=== PATIENT | male | born 1970 | race African-American/Black ===

== ENCOUNTER 2016-09-19 10:56 | Emergency (ER) | payer OTHER ==
--- NOTE | ~2016-09-19 | US115 ---
[facility] A Service of [facility] & [facility] RADIOLOGY TEXT RESULTS PATIENT: ELLYN COTTON LOCATION: SED : 70 UNIT #: [id number] AGE: [address]: Moise Sutherland MD SEX: M ORDER DR: [id number] [place] [id number] E MR#: [id number] Acc #: [id number] NAME: ELLYN COTTON : 1970 SEX: M STUDY DATE/TIME: 09/19/2016 11:47 UNIT: SED ROOM: STUDY DESCRIPTION: US Scrotum and Contents Attending Physician: Moise Sutherland M.D. Ordering Physician: Moise Sutherland M.D. Primary Care Physician: No Primary Care Physician MEDICAL IMAGING REPORT This report is preliminary unless electronic signature is present. EXAM Scrotal ultrasound, 09/19/2016. HISTORY Pain in testicles 1 day. No prior surgery. TECHNIQUE Real-time ultrasonography of the bilateral testes performed. [place]-scale, color Doppler, Doppler pulse-wave interrogation utilized. FINDINGS Right testis measures 2.02 cm x 3.04 cm x 4.17 cm. Normal in size, contour, and echotexture. No focal mass lesion. Arterial and venous flow present. No fluid in the right hemiscrotum. The right epididymis shows a 1.26 cm x 9.1 mm x 1.16 cm epididymal head cyst. Epididymis otherwise unremarkable. The left testis measures 2.25 cm x 3.10 cm x 4.37 cm. Normal in size, contour, and echotexture. Arterial and venous flow present. No mass lesion. Left epididymal head cyst measuring 4.7 x 8.9 mm x 5.2 mm. Epididymis otherwise unremarkable. No left hemiscrotum fluid collection. IMPRESSION 1. Bilateral testes normal in size, contour, and echotexture. Arterial and venous flow noted bilaterally. No testicular mass lesions. 2. Bilateral epididymal head cysts. On right measuring up to 1.2 cm and on left measuring up to about 8.9 mm. No suspicious epididymal findings. 3. No abnormal intrascrotal fluid collections. Dictated by... [facility] A Service of [facility] & [facility] RADIOLOGY TEXT RESULTS PATIENT: ELLYN COTTON LOCATION: SED : 70 UNIT #: [id number] AGE: [address]: Moise Sutherland MD SEX: M ORDER DR: Yinka Coe M.D. THIS IS AN ELECTRONICALLY VERIFIED REPORT Yinka Coe M.D. at 09/21/2016 10:28 PM MADIHA/ching TD: 09/19/2016 15:03 JOB #: [id number] MEDICAL IMAGING REPORT Page 1 of 1
[2016-09-19] MEDS ORDERED: NO MEDICATIONS (11:01)
[2016-09-19 11:42] LABS: URINE SOURCE CLEAN CATCH
[2016-09-19 11:45] LABS: URINE APPEARANCE CLEAR; URINE BILIRUBIN NEG (NEG); URINE BLOOD NEG (NEG); URINE COLOR YELLOW; URINE GLUCOSE NEG (NORM); URINE KETONE NEG (NEG); URINE LEUKOCYTE ESTERASE NEG (NEG); URINE NITRATE NEG (NEG); URINE PH 5.5 (5-8); URINE PROTEIN NEG (NEG); URINE SPECIFIC GRAVITY >=1.030 (1.003-1.035); URINE UROBILINOGEN 0.2 MG/DL (NORM)
[2016-09-19 11:49] LABS: MICRO INDICATED? NO
== END 2016-09-19 13:41 | disposition home or self-care (01) ==
LOC: SED 10:56
PROVIDERS: Emergency Medicine
DX: S39.011A Strain of muscle, fascia and tendon of abdomen, initial encounter (principal); X50.0XXA Overexertion from strenuous movement or load, initial encounter; Y92.9 Unspecified place or not applicable
CPT/HCPCS: 76870; 81003; 99284